=== PATIENT | female | born 1985 | race Caucasian/White ===

== ENCOUNTER 2022-08-07 08:48 | Outpatient (REF) | payer OTHER, SELFPAY ==
[2022-08-07 13:03] LABS: Free T4 (Free Thyroxine) 0.87 ng/dL (0.71-1.85); Thyroid Stimulating Hormone 2.52 uIU/mL (0.32-4.0)
[2022-08-10 13:19] LABS: Thyroid Peroxidase Antibodies 66 IU/mL (<9)
== END 2022-08-07 08:49 | disposition home or self-care (01) ==
LOC: HO.10HDL 08:48
PROVIDERS: Visit Provider Internal Medicine Endocrinology, Diabetes & Metabolism
DX: E03.9 Hypothyroidism, unspecified (principal)
CPT/HCPCS: 36415; 84439; 84443; 86376